=== PATIENT | male | born 1970 | race Caucasian/White ===

== ENCOUNTER 2016-12-17 16:44 | Emergency (ER) | payer BC ==
[~2016-12-17] VITALS: Ht 185.4 cm; Wt 154.7 kg
[~2016-12-17 16:44] MED LIST: ALPRAZOLAM0.5 MG PO; AMBIEN5 MG; AMBIEN5 MG PO; BENTYL20 MG PO; CHEWABLE MULTI1 EACH PO; CITALOPRAM; ENDOCET 5-3251 EACH PO; GEODON80 MG PO; LITHIUM CARBON300 M1 PO; LITHIUM CARBON300 M2 PO; NAPROSYN500 MG PO; NORCO 5/3251 TABLET PO; PROMETHAZINE HC25 M1 PO; QUETIAPINE FUM300 MG PO; SAW PALMETTO160 MG PO; SEROQUEL200 MG PO; SERTRALINE HCL50 MG PO; TRAZODONE HCL50 MG PO; ZIPRASIDONE HCL80 MG PO
[2016-12-17 17:18] LABS: HEMATOCRIT 45.7 % (38.0-50.0); MCH 29.1 PG (29.0-34.0); MCHC 33.7 G/DL (30.0-36.0); MCV 86.4 FL (86-99); MEAN PLAT.VOLUME 9.4 uM^3 (9.0-12.4); PLATELET COUNT 374 K/uL (156-360); RBC DIS.WIDTH-CV 13.7 % (11.8-14.6); RBC DIS.WIDTH-SD 43.7 % (39-53); RED BLOOD COUNT 5.29 M/uL (4.00-5.50)
[2016-12-17 17:31] LABS: CHLORIDE 105 mEq/L (99-109); GLUCOSE 106 mg/dL (70-99); POTASSIUM 4.6 mEq/L (3.7-5.4); SODIUM 136 mEq/L (136-147)
[2016-12-17 17:33] LABS: ANION GAP 12 MEQ/L (2-14)
[2016-12-17 17:35] LABS: GFR ESTIMATE (CALCULATED) > 59 mL/min/
[2016-12-17 17:36] LABS: UREA NITROGEN (BUN) 19 mg/dL (9-23)
[2016-12-17 17:42] LABS: TROP-I INTERPRETATION NEGATIVE; TROPONIN-I < 0.01 ng/mL (0.0-0.30)
[2016-12-17] MEDS ORDERED: ZITHROMAX Z-PA250 MG PO (19:05)
[2016-12-17 19:28] VITALS: BP 133/83
== END 2016-12-17 19:29 | disposition home or self-care (01) ==
LOC: EME 16:44
DX: R07.9 Chest pain, unspecified (principal); F41.9 Anxiety disorder, unspecified; F31.9 Bipolar disorder, unspecified
CPT/HCPCS: 71020; 80048; 80178; 84484; 85027; 93005; 99281; 99284

== ENCOUNTER 2017-05-16 14:10 | Inpatient (IN) | payer OTHER ==
[~2017-05-16] VITALS: Ht 185.4 cm; Wt 145.2 kg
[~2017-05-16 14:10] MED LIST changes: +ZITHROMAX Z-PA250 MG PO
[2017-05-16 16:43] LABS: AMPHETAMINE NEGATIVE (500 ng/mL); BARBITURATES NEGATIVE (200 ng/mL); BENZODIAZEPINES PRESUMPTIVE POSITIVE (150 ng/mL); BUPRENORPHINE NEGATIVE (10 ng/mL); COCAINE NEGATIVE (150 ng/mL); METHADONE NEGATIVE (200 ng/mL); METHAMPHETAMINE NEGATIVE (500 ng/mL); OPIATES (MORPHINE) NEGATIVE (100 ng/mL); OXYCODONE NEGATIVE (100 ng/mL); PHENCYCLIDINE NEGATIVE (25 ng/mL); PROPOXYPHENE NEGATIVE (300 ng/mL); THC CANNABINOIDS NEGATIVE (50 ng/mL); TRICYCLIC ANTIDEPRESSANTS NEGATIVE (300 ng/mL)
[2017-05-16 17:08] LABS: HEMATOCRIT 46.3 % (38.0-50.0); HEMOGLOBIN 15.5 G/DL (12.5-16.6); MCH 29.1 PG (29.0-34.0); MCHC 33.5 G/DL (30.0-36.0); PLATELET COUNT 367 K/uL (156-360); RBC DIS.WIDTH-CV 13.7 % (11.8-14.6); RED BLOOD COUNT 5.32 M/uL (4.00-5.50); WHITE BLOOD COUNT 18.1 K/uL (4.1-10.2)
[2017-05-16 17:16] LABS: BENZODIAZEPINES, URINE SCREEN Negative (200 ng/mL)
[2017-05-16 17:19] LABS: CHLORIDE 105 mEq/L (99-109); POTASSIUM 4.6 mEq/L (3.7-5.4); SODIUM 139 mEq/L (136-147)
[2017-05-16 17:21] LABS: GLUCOSE 99 mg/dL (70-99)
[2017-05-16 17:24] LABS: SERUM ETHYL ALCOHOL < 10 mg/dL
[2017-05-16 17:25] LABS: GFR ESTIMATE (CALCULATED) > 59 mL/min/ (58.99-99999)
[2017-05-16 17:26] LABS: UREA NITROGEN (BUN) 13 mg/dL (9-23)
[2017-05-16 19:20] VITALS: BP 143/90
[2017-05-16] MEDS ORDERED: XANAX0.25 MG PO (19:40)
[2017-05-16] MEDS ORDERED: TOPROL XL100 MG PO (19:41)
[2017-05-16] MEDS ORDERED: LAMICTAL25 MG PO (19:41)
[2017-05-16] MEDS ORDERED: CELEBREX100 MG PO (19:41)
[2017-05-16] MEDS ORDERED: TRAZODONE HCL50 MG PO (19:42)
[2017-05-16] MEDS ORDERED: FLOMAX0.4 MG PO (19:42)
[2017-05-17 09:46] VITALS: BP 133/64
[2017-05-17 16:27] VITALS: BP 146/100
[2017-05-18 08:05] VITALS: BP 130/75
[2017-05-18 15:34] VITALS: BP 131/75
[2017-05-18 20:31] LABS: HEMATOCRIT 45.2 % (38.0-50.0); HEMOGLOBIN 14.7 G/DL (12.5-16.6); MCH 28.2 PG (29.0-34.0); MCHC 32.5 G/DL (30.0-36.0); MCV 86.6 FL (86-99); PLATELET COUNT 383 K/uL (156-360); RBC DIS.WIDTH-CV 13.8 % (11.8-14.6); RBC DIS.WIDTH-SD 44.4 % (39-53); RED BLOOD COUNT 5.22 M/uL (4.00-5.50); WHITE BLOOD COUNT 16.6 K/uL (4.1-10.2)
[2017-05-18 20:35] LABS: ALBUMIN 4.6 G/DL (3.2-4.8); CHLORIDE 104 MEQ/L (99-109); SODIUM 137 MEQ/L (136-147); TOTAL BILIRUBIN 0.5 MG/DL (0.0-1.0)
[2017-05-18 20:41] LABS: ALKALINE PHOSPHATASE 88 IU/L (3-129); ALT (GPT) 27 IU/L (3-49); AST (GOT) 14 IU/L (2-34); CREATININE 0.9 MG/DL (0.6-1.3); GFR ESTIMATE (CALCULATED) > 59 mL/min/ (58.99-99999); GLUCOSE 114 mg/dL (70-99); TOTAL PROTEIN 7.1 G/DL (6.4-8.3); UREA NITROGEN (BUN) 20 mg/dL (9-23)
[2017-05-18 20:49] LABS: APPEARANCE SL.HAZY ((CLEAR)); BILIRUBIN NEGATIVE; BLOOD MODERATE; COLOR YELLOW ((YELLOW)); GLUCOSE (STRIP) NEGATIVE; KETONES NEGATIVE; LEUKOCYTES NEGATIVE; NITRITE NEGATIVE; PROTEIN (STRIP) NEGATIVE; UROBILINOGEN 0.2 MG/DL (0.2-1.0)
[2017-05-18 21:09] LABS: BACTERIA NONE SEEN /HPF; EPITHELIAL CELLS RARE /HPF; MUCUS 4+ /LPF; RED BLOOD CELLS 0-5 /HPF (0-5); WHITE BLOOD CELLS NONE SEEN /HPF (0-5)
[2017-05-18 22:54] LABS: CREATINE KINASE 163 IU/L (1-294)
[2017-05-19 07:52] VITALS: BP 135/75
[2017-05-19 16:19] VITALS: BP 134/81
[2017-05-20 07:54] VITALS: BP 146/88
[2017-05-20 15:42] VITALS: BP 130/80
[2017-05-21 08:00] VITALS: BP 137/80
[2017-05-21 15:51] VITALS: BP 128/79
[2017-05-22 08:21] VITALS: BP 114/65
[2017-05-22] MEDS ORDERED: DESYREL100 MG PO (09:59)
[2017-05-22] MEDS ORDERED: LITHIUM CARBON300 MG PO (09:59)
[2017-05-22] MEDS ORDERED: GEODON40 MG PO (09:59)
[2017-05-22] MEDS ORDERED: LORAZEPAM1 MG PO (09:59)
[2017-05-22] MEDS ORDERED: CEFTIN250 MG PO (10:00)
== END 2017-05-22 15:56 | disposition home or self-care (01) | DRG 885 ==
LOC: EME 14:10 → 1WEST 17:21 → EDOF 17:21 → ENRESERVDT 19:00 → ENRESERV 19:00 → ENRESERVTM 19:00 → 1WEST 19:14
PROVIDERS: Emergency Medicine Emergency Medical Services; Hospitalist; Psychiatry & Neurology Psychiatry
DX: F31.4 Bipolar disorder, current episode depressed, severe, without psychotic features (principal); R45.851 Suicidal ideations; F41.0 Panic disorder [episodic paroxysmal anxiety]; F41.1 Generalized anxiety disorder; D72.829 Elevated white blood cell count, unspecified; Z68.41 Body mass index [BMI] 40.0-44.9, adult; F90.9 Attention-deficit hyperactivity disorder, unspecified type; E66.01 Morbid (severe) obesity due to excess calories; E11.9 Type 2 diabetes mellitus without complications; G89.29 Other chronic pain; I10 Essential (primary) hypertension; W06.XXXA Fall from bed, initial encounter; Z81.8 Family history of other mental and behavioral disorders
CPT/HCPCS: 36415; 70450; 71045; 72125; 72128; 80048; 80053; 80069; 80178; 81003; 82140; 82550; 84153; 84443; 84999; 85027; 90839; 97150 GO; 97165 GO; 97166 GO; 99211 TC; 99281; 99284; G0480